=== PATIENT | female | born 1960 | race Caucasian/White ===

== ENCOUNTER 2020-12-06 12:51 | Emergency (ER) | payer OTHER, SELFPAY ==
[2020-12-06] VITALS (56 sets, daily range): BP systolic 96–134; BP diastolic 58–72; PULSE 52–78; RESP 12–25; TEMP 36.4; O2SAT 97–100
--- NOTE | 2020-12-06 12:45 | RT.EKG_ITS ---
APPROVED REPORT Exam: Resting ECG Patient Location: E HR:70 bpm ECG Measurements Heart Rate 70 AXIS CA 172 P 74 QRSd 82 QRS 47 QT 393 T 59 QTc 426 Conclusion Sinus rhythm...normal P axis, V-rate 60- 99 I have reviewed and interpreted ECG and agree with software generated interpretation.
--- NOTE | 2020-12-06 13:02 | ED.GENADUL_ITS ---
Discharge Plan Disposition Patient Disposition: HOME Condition: Stable Discharge Details Clinical Impression: Palpitations, Atypical chest pain Primary Care Provider: Unknown,Unknown ED Provider: Prem Sanders Home Meds and New Rx's Prescriptions: Continued calcium 600 mg Capsule 1,200 mg PO DAILY RF: 0 alendronate 10 mg Tablet 10 mg PO DAILY RF: 0 levothyroxine 50 mcg Tablet See Rx Instructions .ROUTE .COMPLEX RF: 0 fluticasone propionate 50 mcg/actuation [place],Suspension 1 spray INTRANASAL PRN PRNRF: 0 Discharge Instructions Instructions: Chest Pain (ED), Heart Palpitations (ED) Additional Instructions: Drink plenty of fluids and get plenty of rest. Alternate tylenol and motrin as needed and directed for pain. Call your primary care doctor's office on Wednesday morning to schedule follow-up appointment for reevaluation and for referral for an outpatient cardiac catheterization technician for further evaluation of your palpitations and for consideration for outpatient stress test if your chest pressure returns. Return immediately to the emergency department if you develop any worsening or new concerning symptoms. Discharge Data Discharge Date/Time-TO BE ENTERED AT DEPARTURE: 12/06/20 18:36 Discharge Physician: Luzma Gomez Medical Decision Making <Luzma Gomez, - Last Filed: 12/06/20 20:25> 1300 -- 60-year-old female presents to the ED with complaint of a brief episode of left-sided chest pressure yesterday and today and intermittent palpitations since yesterday. Heart rate on arrival 70s. EKG notes rate of 70, sinus, no STEMI, nondiagnostic. Patient appears slightly anxious. Her left chest is nontender. She appears tearful when talking about her father whom she is taking care of. Differential diagnosis includes stress or anxiety, arrhythmia, PE, electrolyte abnormality, dehydration. Will place an IV, bolus IV fluids, screening labs, CT chest and will plan for second troponin and EKG. 1400 -- Labs and imaging reviewed and unremarkable for acute findings. TSH negative. Troponin negative. CT chest notes a 3 mm right middle lobe pulmonary nodule no other acute findings. Patient was informed of pulmonary nodule and as she is a non-smoker with no other risk factors, likely does not need additional follow-up. I discussed with respiratory to potentially place a 48-hour Holter monitor but there are no monitors available. Patient was offered to return here on Wednesday for monitor placement but she states she would rather follow-up with her primary care doctor for this. 1615 -- Repeat EKG notes a rate of 55, sinus, no STEMI, nondiagnostic. 1625 -- Case endorsed to Dr. Sanders to follow-up on repeat troponin. If negative and patient remains chest pain-free, will plan for discharged home for follow-up with her primary care doctor for referral for outpatient cardiac catheterization technician or consideration for outpatient stress test if her chest pain returns. Medical Records Medical records reviewed: Yes I reviewed the patient's medical records. Imaging Data Radiologic Study: Radiologist's impression: CT CHEST PE CTA CLINICAL HISTORY: L sided chest pressure, palpitations. TECHNIQUE: Imaging Protocol: Axial CT angiography was performed with multi- slice acquisition and multi-planar and/or 3D reconstructions. CONTRAST MATERIAL: Intravenous: Omnipaque 350 Contrast volume:59 mL COMPARISON: No exams were available for comparison FINDINGS: Tracheobronchial tree: Patent where visualized. Pulmonary parenchyma: No consolidation or dominant measurable mass. No architectural distortion. There is a 3 mm noncalcified pulmonary nodule in the right middle lobe. Mild dependent atelectasis is seen in the lung bases. Pulmonary Arteries: No evidence of filling defect to suggest pulmonary emboli. Mediastinum and Comofrt: No dominant adenopathy or fluid collection. Visualized thyroid gland: Unremarkable. Pleura: No effusion or pneumothorax. Heart: The heart is not dilated. No coronary artery calcifications are seen. No pericardial effusion. Aorta: Thoracic aorta non-dilated. No evidence of dissection. Upper abdomen: Unremarkable. Soft tissues: Unremarkable. Bones: Within normal limits for the patient's age. IMPRESSION: 1. No evidence of pulmonary embolism, thoracic aortic dissection or aneurysm. 2. 3 mm right middle lobe pulmonary nodule. For patients at low risk, no routine follow-up is indicated. For patients at high risk (history of smoking or other known risk factors), consider CT scan of the chest at 12 months. 3. Results of this exam have been verbally communicated with provider. ECG Data Attestation: I personally reviewed and interpreted this ECG (s) as follows: Interpretation: #1 -- Rate of 70, sinus, no acute ST elevation or depression. [place] 124. QRS 84. QTc 441 #2 -- Rate of 55, sinus, no acute ST elevation or depression. [place] 187. QRS 32. QTc 394. <Prem Sanders MD - Last Filed: 12/06/20 18:22> Care signed out by Dr. Gomez with plan to follow-up on delta troponin and if negative discharge with outpatient follow-up. Labs reviewed and delta troponin negative. Per nursing patient remains chest pain-free and hemodynamically stable. HPI <Luzma Gomez DO - Last Filed: 12/06/20 20:25> General Mode of arrival: ambulatory . Date/Time Provider Initiated Documentation: 12/06/20 12:54 . Limitations to Documentation: no limitations . Information obtained by: patient . HPI Narrative: Patient is a 60-year-old female with a previous history of palpitations presents to the ED with intermittent palpitations since yesterday. She states yesterday this started while she was walking and lasted a few seconds and was associated with left- sided chest pressure that also lasted a few seconds and then resolved. She states she did have intermittent episodes of palpitations the rest of the day yesterday but this resolved before going to bed last night and she states she was able to sleep throughout the night. She states she felt fine upon awakening this morning was able to eat breakfast. She states she stays with her father who lives nearby twice weekly to help care for him and states she was sitting in his room waiting for him to wake up when she noted sudden onset of palpitations and left-sided chest pressure which was minimal and lasted a few seconds and radiated straight through to her back. She denies any complaint of chest pressure palpitations at this time. She states she feels her symptoms may be due to anxiety as she has a lot of stress at this time. She denies any known injury. Patient denies any alcohol, drug or caffeine use. She states she drinks plenty of water. She denies any other associated symptoms including fever, cough, shortness of breath, nausea, vomiting, dizziness or diaphoresis. She states she has been seen in the past for similar palpitations and had a Holter monitor and echocardiogram which she states was negative for any significant acute findings. Related Data Home Medications Medication Instructions Recorded Confirmed alendronate 10 mg PO DAILY 12/06/20 12/06/20 calcium 1,200 mg PO DAILY 12/06/20 12/06/20 fluticasone propionate 1 spray INTRANASAL PRN PRN 12/06/20 12/06/20 levothyroxine See Rx Instructions .ROUTE .COMPLEX 12/06/20 12/06/20 Allergies Allergy/AdvReac Type Severity Reaction Status Date / Time Sulfa (Sulfonamide Allergy Skin Rash Unverified 12/06/20 13:28 Antibiotics) General Stated Complaint: Palpitatns PRETTY: 3 Review of Systems <Luzma Gomez DO - Last Filed: 12/06/20 20:25> All systems reviewed & are unremarkable except as noted in HPI and below Constitutional Constitutional: Reports as per HPI, Denies chills and Denies fever(s) Eyes Eyes: Denies blurry vision ENT Ears, Nose, Mouth, and Throat: Denies dizziness, Denies sore throat and Denies throat swelling Cardiovascular Cardiovascular: Reports chest pain, Reports palpitations and Denies dyspnea Respiratory Respiratory: Denies cough and Denies dyspnea Gastrointestinal Gastrointestinal: Denies abdominal pain, Denies diarrhea and Denies vomiting Genitourinary Genitourinary: Denies hematuria and Denies dysuria Musculoskeletal Musculoskeletal: Denies back pain and Denies numbness Integumentary/Breasts Skin/Breast: Denies lesions and Denies rash Neurologic Neurologic: Denies dizziness, Denies localized weakness and Denies numbness Endocrine Endocrine: Reports palpitations Allergic/Immunologic Allergic/Immunologic: Denies throat swelling PFSH <Luzma Gomez DO - Last Filed: 12/06/20 20:25> Medical History (Updated 12/06/20 @ 15:12 by Luzma Gomez DO) No significant past medical history Surgical History (Updated 12/06/20 @ 13:28 by Luzma Gomez DO) History of bunionectomy Social History Smoking/Tobacco Use Status: Never Smoking risk assessment performed?: Yes Alcohol Intake: never Drug use: Never Substance use type: does not use Do you feel safe at home: Yes Do you feel safe in your relationship?: Yes Exam <Luzma Gomez DO - Last Filed: 12/06/20 20:25> Const General: cooperative, healthy appearing and no acute distress HENMT Head: normal to inspection Face and sinus: normal facial exam Eyes General: appearance normal, both eyes and all related structures EOM: EOM intact bilaterally Neck Neck: normal visual inspection and No submandibular swelling Lymphatic: no lymphadenopathy noted Chest Chest: normal inspection of the chest and no tenderness Resp Effort & Inspection: normal respiratory effort and able to speak in complete sentences Auscultation: clear to auscultation bilaterally Cardio Rate: regular rate Rhythm: regular rhythm GI Inspection: normal to inspection Palpation: soft, not firm, not rigid and nontender Auscultation: normal bowel sounds Skin General skin exam: no rashes or lesions noted Neuro General: patient alert, patient awake and patient oriented x3 Cognition: normal cognition Speech: speech normal Motor: muscle tone normal throughout Sensory Exam: no sensory deficits noted Extrem General: normal to inspection, full ROM, capillary refill normal, no calf tenderness bilaterally and no edema Psych Appearance: grossly normal Mental Status: mental status grossly normal Speech and Movement: speech and movement normal Affect: normal affect Course <Luzma Gomez DO - Last Filed: 12/06/20 20:25> Vital Signs Vital signs: Vital Signs Temperature 97.5 F L 12/06/20 12:58 Pulse 70 12/06/20 12:58 Respiratory Rate 18 12/06/20 12:58 Blood Pressure 134/62 12/06/20 12:58 Pulse Oximetry 100 12/06/20 12:58 Temperature 97.5 F L 12/06/20 12:58 Temperature Source Temporal Artery Scan 12/06/20 12:58 Pulse 70 12/06/20 12:58 Respiratory Rate 18 12/06/20 12:58 Blood Pressure 134/62 12/06/20 12:58 Blood Pressure Position Sitting 12/06/20 12:58 Pulse Oximetry 100 12/06/20 12:58 Oxygen Delivery Method Room Air 12/06/20 12:58 Oxygen Flow Rate 0 12/06/20 12:58 Pain Level 3 12/06/20 12:58 Sign Out <Luzma Gomez DO - Last Filed: 12/06/20 20:25> Sign Out Data: Sign Out Comment: Follow-up on repeat troponin. If negative, can discharge to home with plan for follow-up with the primary care doctor for reevaluation and for placement of cardiac catheterization technician and consideration of outpatient stress test. Last updated by Luzma Gomez DO at 12/06/20 16:11
--- NOTE | 2020-12-06 13:15 | RT.EKG_ITS ---
APPROVED REPORT Exam: Resting ECG Patient Location: E HR:55 bpm ECG Measurements Heart Rate 55 AXIS NC 187 P 77 QRSd 72 QRS 55 QT 412 T 64 QTc 394 Conclusion Sinus bradycardia...rate< 60 I have reviewed and interpreted ECG and agree with software generated interpretation.
[2020-12-06 13:18] LABS: Abs Immature Grans 0.01 10^3/uL (0.0-0.06); Absolute Basophil Count 0.02 10^3/uL (0.0-0.2); Absolute Eosinophil Count 0.03 10^3/uL (0.0-0.7); Absolute Lymphocyte Count 2.21 10^3/uL (1.2-3.4); Absolute Monocyte Count 0.44 10^3/uL (0.1-0.8); Absolute Neutrophil Count 3.54 10^3/uL (1.2-6.7); Basophils % 0.3; Eosinophils % 0.5; HCT 42.3 % (36.0-46.0); Immature Grans % 0.2; Lymphocytes % 35.4; MCH 30.4 pg (27.0-33.0); MCHC 33.1 % (32.0-36.0); MCV 91.8 fL (80-95); Neutrophils % 56.6; Nucleated RBC 0 %; Platelet Count 190 10^3/uL (130-400); RBC 4.61 10^6/uL (3.93-5.22); RDW 13.2 % (11.7-14.6); RDW-SD 44.9 fL; WBC 6.25 10^3/uL (4.4-10.8)
[2020-12-06 13:38] LABS: ALT 23 U/L (14-59); AST 17 U/L (15-37); Albumin 4.5 g/dL (3.4-5.0); Alkaline Phosphatase 49 U/L (46-116); Anion Gap 10.7 mmol/L (3-11); BUN 15 mg/dL (7-18); Bilirubin, Total 0.6 mg/dL (0.2-1.0); CO2 27.3 mmol/L (21.0-32.0); CREATININE 0.9 mg/dL (0.55-1.02); Calcium 9.2 mg/dL (8.5-10.1); Chloride 102 mmol/L (98-107); Glucose 89 mg/dL (74-106); Magnesium 1.9 mg/dL (1.8-2.4); Potassium 3.7 mmol/L (3.5-5.1); Sodium 140 mmol/L (136-145); Total Protein 7.6 g/dL (6.4-8.2)
[2020-12-06 13:39] LABS: PTT Activated 23.4 sec (21.0-27.5); Prothrombin Time 9.9 sec (9.3-11.0)
[2020-12-06 13:42] LABS: Troponin I < 0.05 ng/mL (<0.06)
[2020-12-06] MEDS: Omnipaque 350 MG/ML 100 ML BTL IJ (13:59)
[2020-12-06] MEDS: Normal Saline - Diluent 50 ML VIAL IV (13:59)
[2020-12-06] MEDS: Normal Saline Flush 10 ML SYR IVP (14:00)
--- NOTE | 2020-12-06 14:00 | DI.CT_ITS ---
Exam(s) CT CHEST PE CTA EXAM: CT CHEST PE CTA CLINICAL HISTORY: L sided chest pressure, palpitations. TECHNIQUE: Imaging Protocol: Axial CT angiography was performed with multi-slice acquisition and mu lti-planar and/or 3D reconstructions. CONTRAST MATERIAL: Intravenous: Omnipaque 350 Contrast volume:59 mL COMPARISON: No exams were available for comparison FINDINGS: Tracheobronchial tree: Patent where visualized. Pulmonary parenchyma: No consolidation or dominant measurable mass. No architectural distortion. Ther e is a 3 mm noncalcified pulmonary nodule in the right middle lobe. Mild dependent atelectasis is se en in the lung bases. Pulmonary Arteries: No evidence of filling defect to suggest pulmonary emboli. Mediastinum and Comfort: No dominant adenopathy or fluid collection. Visualized thyroid gland: Unremarkable. Pleura: No effusion or pneumothorax. Heart: The heart is not dilated. No coronary artery calcifications are seen. No pericardial effusion. Aorta: Thoracic aorta non-dilated. No evidence of dissection. Upper abdomen: Unremarkable. Soft tissues: Unremarkable. Bones: Within normal limits for the patient's age. IMPRESSION: 1. No evidence of pulmonary embolism, thoracic aortic dissection or aneurysm. 2. 3 mm right middle lobe pulmonary nodule. For patients at low risk, no routine follow-up is indica augustus. For patients at high risk (history of smoking or other known risk factors), consider CT scan of the chest at 12 months. 3. Results of this exam have been verbally communicated with provider. Incidental Findings RADIATION DOSE DELIVERED: 260.05mGy.cm Total DLP DATA REPOSITORY: All CT scans at this facility are submitted to the National Radiology Data Registry (NRDR) Dose Index Registry (DIR) with the [employer] ([employer]). RADIATION OPTIMIZATION: All CT scans at this facility use at least one of these dose optimization te chniques: automated exposure control; mA and/or kV adjustment per patient size (includes targeted exa ms where dose is matched to clinical indication); or iterative reconstruction.
[2020-12-06 14:22] LABS: TSH (W/Ref FT4) 1.18 uIU/mL (0.36-3.74)
[2020-12-06] MEDS: Normal Saline 1,000 ML 1000 ML IV (14:23)
[2020-12-06 16:36] LABS: Troponin I < 0.05 ng/mL (<0.06)
== END 2020-12-06 18:36 | disposition home or self-care (01) ==
PROVIDERS: Physician Assistant; Emergency Provider Student in an Organized Health Care Education/Training Program
DX: R00.2 Palpitations (principal); R09.89 Other specified symptoms and signs involving the circulatory and respiratory systems; R91.1 Solitary pulmonary nodule
CPT/HCPCS: 36415; 71275; 80053; 93005; 96360; 99285; 83735; 84443; 84484; 85025; 85610; 85730; 93010; 99284; J3490